=== PATIENT | female | born 1950 | race Caucasian/White ===

== ENCOUNTER → 2019-11-27 | Outpatient (CLI) | payer OTHER | LOC: M.LAB 09:29 | DX: Z20.828 Contact with and (suspected) exposure to other viral communicable diseases (principal) ==

== ENCOUNTER 2020-06-19 14:16 | Inpatient (IN) | payer OTHER ==
[~2020-06-19] VITALS: Ht 160 cm; Wt 77.1 kg
[2020-06-19 14:28] VITALS: BP 114/60
[2020-06-19] MEDS ORDERED: SYNTHROID150 MCG PO (14:31)
[2020-06-19] MEDS ORDERED: CHILDREN'S ASPI81 M1 PO (14:31)
[2020-06-19 14:46] LABS: ABSOLUTE BASOPHILS 0.1 thou/uL (0.0-0.2); ABSOLUTE EOSINOPHILS 0.2 thou/uL (0.0-0.7); ABSOLUTE LYMPHOCYTES 1.8 thou/uL (0.8-5.3); ABSOLUTE MONOCYTES 1.2 thou/uL (0.0-1.2); ABSOLUTE NEUTROPHILS 13.1 thou/uL (1.6-8.1); BASOPHILS 0.7 %; EOSINOPHILS 1.3 %; HEMATOCRIT 40.2 % (37.0-47.0); HEMOGLOBIN 13.3 gm/dL (12.0-15.0); MCH 27.8 pg (26.0-34.0); MCHC 33.2 g/dL (28.0-37.0); MCV 83.7 fL (80.0-100.0); MONOCYTES 7.2 %; MPV 7.3 fl. (7.2-11.1); NUCLEATED RBCS 0 /100WBC; PLATELET COUNT* 405 thou/uL (150-400); POLYS 79.8 %; RDW-CV 13.5 % (10.5-14.5); WBC 16.5 thou/uL (4.0-11.0)
[2020-06-19 14:55] LABS: CALCIUM 9.4 mg/dL (8.5-10.1); CREATININE 0.8 mg/dL (0.6-1.3); POTASSIUM 3.6 mmol/L (3.5-5.1)
[2020-06-19 14:59] LABS: ALBUMIN 3.1 g/dL (3.4-5.0); TOTAL BILIRUBIN 0.7 mg/dL (<0.1-1.0); TOTAL PROTEIN 8.2 g/dL (6.4-8.2)
[2020-06-19 15:21] LABS: URINE BILIRUBIN NEGATIVE (Negative); URINE BLOOD 1+ (Negative); URINE CLARITY CLEAR; URINE COLOR YELLOW; URINE GLUCOSE-RANDOM NEGATIVE (Negative); URINE KETONES TRACE (Negative); URINE LEUKOCYTES-REFLEX NEGATIVE (Negative); URINE NITRITE-REFLEX NEGATIVE (Negative); URINE PROTEIN 2+ (Negative); URINE UROBILINOGEN 0.2 E.U./dl (0.2-1.0)
[2020-06-19 15:31] LABS: MUCUS 0-3 Light strn/LPF (None Seen); SQUAMOUS 4-10 Moderate /LPF (0-3)
[2020-06-19 15:32] LABS: CASTS None Seen /LPF (None Seen); CRYSTALS None Seen /LPF (None Seen)
[2020-06-19 15:33] LABS: URINE RBC 3-10 Few /HPF (0-2)
[2020-06-19 15:34] LABS: URINE WBC-REFLEX 0-5 Rare /HPF (0-5)
[2020-06-19 15:35] LABS: BACTERIA-REFLEX None Seen /HPF (None Seen)
[2020-06-19 20:24] VITALS: BP 121/65
[2020-06-19 23:30] VITALS: BP 106/50
[2020-06-20 04:12] LABS: MCH 27.5 pg (26.0-34.0); MCHC 33.1 g/dL (28.0-37.0); MCV 83.1 fL (80.0-100.0); MPV 7.3 fl. (7.2-11.1); RBC 3.85 mil/uL (4.20-5.00); RDW-CV 13.5 % (10.5-14.5); WBC 13.9 thou/uL (4.0-11.0)
[2020-06-20 04:36] LABS: CALCIUM 7.6 mg/dL (8.5-10.1); CREATININE 0.6 mg/dL (0.6-1.3); POTASSIUM 3.7 mmol/L (3.5-5.1)
[2020-06-20 04:47] LABS: HEMOGLOBIN 10.6 gm/dL (12.0-15.0)
--- NOTE | 2020-06-20 05:17 | NUR ---
PT RECIEVED FROM ED IN ROOM 223. ALERT AND ORIENTED X4. C/O PAIN, MEDICATION GIVEN PER EMAR. CALL LIGHT WITHIN REACH AND BED IN LOW POSITION. HOURLY ROUNDING DONE FOR PT SAFETY.
[2020-06-20 09:00] VITALS: BP 124/51
--- NOTE | 2020-06-20 09:52 | NUR ---
CM SPOKE TO THE PT TO DISCUSS CM ASSESSMENT. PT A&O, INDEPENDENT WITH ADL'S, ACTIVE AND DRIVES. PT INFORMS THAT SHE DROVE HERSELF TO THE HOSPITAL. PT RESIDES AT HOME ALONE. PT OWNS A WALKER THAT WAS GIVEN TO HER BY A FRIEND, BUT SHE DOES NOT USE IT. PT HAS 0 HX OF HH OR SNF. CM WILL REMAIN AVAILABLE TO ASSIST AND FOLLOW NEEDED.
[2020-06-20 11:20] VITALS: BP 116/56
[2020-06-20 12:38] LABS: MAGNESIUM 1.9 mg/dL (1.8-2.4); PHOSPHORUS* 3.1 mg/dL (2.5-4.9)
[2020-06-20 15:45] VITALS: BP 117/51
--- NOTE | 2020-06-20 19:06 | NUR ---
PT. AOX4, VSS, PAIN AND NAUSEA UNDER CONTROL, CALL LIGHT AND PERSONAL BELONGINGS PLACED WITHIN REACH. IV NS INFUSING, NO COMPLICATIONS. PT. IN BED, RESTING WITH EYES OPEN AT THIS TIME.
[2020-06-20 20:36] VITALS: BP 115/55
[2020-06-21 00:56] VITALS: BP 129/59
--- NOTE | 2020-06-21 03:46 | NUR ---
ASSUMED CARE OF PATIENT AT 1930. PATIENT C/O OF NAUSEA AT ASSESSMENT. ADMINISTERED PRN ZOFRAN ORDERED. AT APPROXIMATELY [id number] PATIENT CALLED AND STATED SHE DID NOT FEEL WELL AND THAT SHE WAS HAVING WHAT SHE DESCRIBED "HEART PALPITATIONS" WITH NAUSEA. UNABLE TO ADMINISTER PRN ZOFRAN AT THAT TIME. ASSISTED PATIENT TO CHAIR AND INSTRUCTED TO DEEP BREATHE. UPON REASSESSMENT PATIENT STATED THAT SHE FELT BETTER AND NAUSEA HAD SUBSIDED.
[2020-06-21 04:17] LABS: HEMATOCRIT 32.9 % (37.0-47.0); MCH 27.6 pg (26.0-34.0); MCHC 33.5 g/dL (28.0-37.0); MCV 82.4 fL (80.0-100.0); MPV 7.6 fl. (7.2-11.1); RBC 3.99 mil/uL (4.20-5.00); RDW-CV 13.1 % (10.5-14.5); WBC 14.9 thou/uL (4.0-11.0)
[2020-06-21 04:36] LABS: ALBUMIN 2.3 g/dL (3.4-5.0); CALCIUM 8.2 mg/dL (8.5-10.1); CREATININE 0.7 mg/dL (0.6-1.3); POTASSIUM 3.5 mmol/L (3.5-5.1); TOTAL BILIRUBIN 0.5 mg/dL (<0.1-1.0); TOTAL PROTEIN 6.5 g/dL (6.4-8.2)
[2020-06-21 08:00] VITALS: BP 101/42
--- NOTE | 2020-06-21 08:57 | EKG ---
[place] [address] ELECTROCARDIOGRAM REPORT Name: FREDERICKJARON Julian Room: [address] ADM IN [facility]#: [id number] Admission: 06/19/20 Attend Phys: Jordan Sanders Discharge: Date of : 46 Date of Service: 06/19/20 1451 Report #: [id number] THIS REPORT FOR: //name// [facility] ED Test Date: 2020-06-19 Test Time: 14:51:00 Pat Name: JARON MACK Department: Room: [facility] Gender: F Seasonal Package Handler: JES : 1950 Requested By: Eduarda Steele Order Number: [id number] MD: Calderon Carcamo Measurements Intervals [place] Rate: 71 P: 60 DC: 163 QRS: 21 QRSD: 91 T: 39 QT: 375 QTc: 408 Interpretive Statements Sinus rhythm No previous ECG available for comparison Electronically Signed On 06-21-2020 8:56:51 CHISEL GRINDER by Calderon Carcamo [email or web address] <ELECTRONICALLY SIGNED> By: Nikolay Carcamo MD, [facility] 06/21/20 0856 50 50 Nikolay Carcamo MD, [facility] /EPI
[2020-06-21 11:10] VITALS: BP 101/69
[2020-06-21 16:30] VITALS: BP 11/63
--- NOTE | 2020-06-21 18:52 | NUR ---
PT. AOX4, VSS, PAIN AND NAUSEA UNDER CONTROL, OOB TO CHAIR INDEPENDENTLY, CALL LIGHT AND PERSONAL BELONGINGS PLACED WITHIN REACH. PT. DECLINES EKG FOR ABNORMAL RHYTHM. DIET ADVANCED TO CLD, TOLERATED WITHOUT DIFFICULTY. PT. IN BED, RESTING WITH EYES CLOSED AT THIS TIME.
[2020-06-21 20:30] VITALS: BP 130/65
[2020-06-22] VITALS: BP 134/62
[2020-06-22 04:25] LABS: CALCIUM 8.5 mg/dL (8.5-10.1); CREATININE 0.6 mg/dL (0.6-1.3); POTASSIUM 3.4 mmol/L (3.5-5.1)
[2020-06-22 04:36] LABS: HEMATOCRIT 32.6 % (37.0-47.0); MCH 27.8 pg (26.0-34.0); MCHC 33.9 g/dL (28.0-37.0); MCV 81.9 fL (80.0-100.0); MPV 7.6 fl. (7.2-11.1); RBC 3.98 mil/uL (4.20-5.00); RDW-CV 13.1 % (10.5-14.5); WBC 12.5 thou/uL (4.0-11.0)
--- NOTE | 2020-06-22 06:50 | NUR ---
PT CARE ASSUMED AT 1930. SAT MAINTAINED IN RA. C/O PAIN, MEDICATION GIVEN PER EMAR. DENIES NAUSEA. CALL LIGHT WITHIN REACH AND BED IN LOW POSITION. HOURLY ROUNDING DONE FOR PT SAFETY.
[2020-06-22 07:30] VITALS: BP 123/55
--- NOTE | 2020-06-22 13:51 | NUR ---
CM INFORMED DURING PRIME ROUNDING OF THE PLAN OF CARE FOR THE PT. PT REMAINS ON I.V. ABT'S, CT TOMORROW, AND PLAN TO ADVANCE PT'S DIET. CM WILL REMAIN AVAILABLE TO ASSIST AND FOLLOW NEEDED.
[2020-06-22 16:00] VITALS: BP 125/67
--- NOTE | 2020-06-22 18:24 | NUR ---
PATIENT TRANSFERRED TO ROOM 312 FROM [facility]. REPORT RECEIVED FROM ALONDRA TREJO. NO COMPLAINTS AT THIS TIME. IV SL. PATIENT TALKING ON PHONE TO FAMILY. CALL LIGHT WITHIN REACH.
[2020-06-22 20:00] VITALS: BP 107/61
[2020-06-23 04:22] LABS: HEMATOCRIT 32.1 % (37.0-47.0); HEMOGLOBIN 10.7 gm/dL (12.0-15.0); MCH 27.5 pg (26.0-34.0); MCHC 33.4 g/dL (28.0-37.0); MCV 82.6 fL (80.0-100.0); MPV 7.3 fl. (7.2-11.1); RBC 3.89 mil/uL (4.20-5.00); RDW-CV 13.3 % (10.5-14.5); WBC 10.5 thou/uL (4.0-11.0)
[2020-06-23 04:35] LABS: CALCIUM 7.9 mg/dL (8.5-10.1); CREATININE 0.6 mg/dL (0.6-1.3); POTASSIUM 3.5 mmol/L (3.5-5.1)
--- NOTE | 2020-06-23 06:58 | NUR ---
Alert and oriented x 4. She is up independently in the room. Vitals are stable. Heartrate regular.lungs clear,bowel sounds x 4. She has had nothing by mouth since midnight but she believes that the CT will be canceled today. Shehas slept well.
[2020-06-23 07:30] VITALS: BP 126/59
[2020-06-23] MEDS ORDERED: AUGMENTIN 875-1 EACH PO (08:08)
[2020-06-23] MEDS ORDERED: ZOFRAN ODT4 MG PO (08:08)
[2020-06-23 14:52] VITALS: BP 126/59
[2020-06-23 15:15] VITALS: BP 126/59
--- NOTE | 2020-06-23 15:17 | NUR ---
discharged to home in stable condition. pt discharged via w/c but will be driving self home. pt verbalized understanding to all discharge instructions and follow up doctor visits and ct's. iv dc'd with cath cannula intact. pressure applied until bleeding ceased and cotton ball and tape applied. no c/o pain.
== END 2020-06-23 15:17 | disposition home or self-care (01) | DRG 872 ==
LOC: M.ERS 14:16 → M.TBA-ER 16:48 → M.2W 16:48 → M.3W 06-22 18:22
PROVIDERS: Internal Medicine; Nurse Practitioner Family; Surgery; ADMIT Internal Medicine; ATTEND Internal Medicine
DX: A41.9 Sepsis, unspecified organism (principal); K57.20 Diverticulitis of large intestine with perforation and abscess without bleeding; E89.0 Postprocedural hypothyroidism; Z20.828 Contact with and (suspected) exposure to other viral communicable diseases; Z90.710 Acquired absence of both cervix and uterus; Z90.49 Acquired absence of other specified parts of digestive tract; Z88.0 Allergy status to penicillin; Z91.018 Allergy to other foods; Z79.899 Other long term (current) drug therapy

== ENCOUNTER → 2020-06-29 | Outpatient (CLI) | payer OTHER ==
[~2020-06-29] MED LIST: AUGMENTIN 875-1 EACH PO; CHILDREN'S ASPI81 M1 PO; SYNTHROID150 MCG PO; ZOFRAN ODT4 MG PO
== END ==
LOC: M.CT 08:56
PROVIDERS: ATTEND Surgery
DX: K57.92 Diverticulitis of intestine, part unspecified, without perforation or abscess without bleeding (principal); I25.10 Atherosclerotic heart disease of native coronary artery without angina pectoris